=== PATIENT | male | born 1945 | race Hispanic/Latino ===

== ENCOUNTER 2016-08-06 18:42 | Inpatient (IN) | payer MEDICARE ==
[2016-08-06 22:08] VITALS: BMI 35.5
[2016-08-06] MEDS ORDERED: Albuterol-Ipratrop 3 mg / 0.5 (3 ml) UD INH STA (23:21)
[2016-08-06 23:27] VITALS: RESP 20
[2016-08-06] MEDS: Insulin Regular 100 units/ml SC SCH (23:48)
--- NOTE | 2016-08-07 00:35 | CP.PCM.HP ---
History of Present Illness - History of Present Illness History of Present Illness: CC: admitted for IV Abx for CAP and for PT/OT HPI: This is a 71 y/o male with DM2, HTN, and HLD who comes from [facility] where he was admitted on 08/02/16 for CAP. He also had c/o some b/l LE stiffness and generalized UE weakness and shakiness. Patient states currently breathing is comfortable. Denies f/c/n/v/d. ROS: 14 systems reviewed, negative other than HPI MHx: DM2, HTN, HLD SHx: None Allergies: NKDA Medications: As per med rec Family Hx: Reviewed, no relevant findings Social Hx: Lives with family, denies EtOH, denies tobacco Present on Admission - Present on Admission Any Indicators Present on Admission: No Past Patient History - Past Medical History & Family History Past Medical History?: Yes - Past Social History Smoking Status: Former Smoker - CARDIAC Hx Hypercholesterolemia: Yes Hx Hypertension: Yes - PULMONARY Hx Respiratory Disorders: No Hx Pneumonia: Yes - NEUROLOGICAL Hx Neurological Disorder: No - HEENT Hx HEENT Problems: Yes Other/Comment: WEAR GLASSES FOR VISION AND DRIVING - RENAL Hx Chronic Kidney Disease: Yes Hx Kidney Stones: Yes - ENDOCRINE/METABOLIC Hx Endocrine Disorders: Yes Hx Diabetes Mellitus Type 2: Yes - HEMATOLOGICAL/ONCOLOGICAL Hx Blood Disorders: No Hx AIDS: No Hx Blood Transfusions: No Hx Human Immunodeficiency Virus (HIV): No - INTEGUMENTARY Hx Dermatological Problems: No - MUSCULOSKELETAL/RHEUMATOLOGICAL Hx Musculoskeletal Disorders: Yes Hx Back Pain: Yes Hx Falls: Yes (fell a year ago) Other/Comment: fell a year ago - GASTROINTESTINAL Hx Gastrointestinal Disorders: No - GENITOURINARY/GYNECOLOGICAL Hx Genitourinary Disorders: No - PSYCHIATRIC Hx Psychophysiologic Disorder: No Hx Substance Use: No - SURGICAL HISTORY Hx Surgeries: No - ANESTHESIA Hx Anesthesia: No Hx Anesthesia Reactions: No Hx Malignant Hyperthermia: No Meds Allergies/Adverse Reactions: Allergies Allergy/AdvReac Type Severity Reaction Status Date / Time No Known Allergies Allergy Verified 08/02/16 09:25 Physical Exam - Constitutional Appears: No Acute Distress - Head Exam Head Exam: ATRAUMATIC, NORMOCEPHALIC - Eye Exam Eye Exam: EOMI, PERRL - ENT Exam ENT Exam: Mucous Membranes Moist - Neck Exam Neck exam: Positive for: Full Rom - Respiratory Exam Respiratory Exam: Rhonchi, NORMAL BREATHING PATTERN - Cardiovascular Exam Cardiovascular Exam: REGULAR RHYTHM, +S1, +S2 - GI/Abdominal Exam GI & Abdominal Exam: Normal Bowel Sounds, Soft - Extremities Exam Extremities exam: Positive for: full ROM, normal inspection - Neurological Exam Neurological exam: Alert, CN II-XII Intact, Oriented x3 - Psychiatric Exam Psychiatric exam: Normal Affect, Normal Mood - Skin Skin Exam: Dry, Warm Results - Vital Signs Recent Vital Signs: Last Vital Signs Temp Pulse 84 08/06/16 23:53 Resp 20 08/06/16 23:05 BP Pulse Ox Assessment & Plan (1) CAP (community acquired pneumonia) Assessment and Plan: A/P: This is a 71 y/o male with MHx significant DM2, HTN, and HLD who comes in with CAP and deconditioning. 1) CAP -Continue Ceftriaxone, Azithromycin IV -Duonebs q6h PRN 2) Weakness/deconditioning -- PT/OT consult 3) DM2 -- continue PO medications, QID ACHS accuchecks, SSI, DM diet 4) HTN -- continue regular medications 5) DVT PPx -- SC Lovenox Status: Acute (2) DM2 (diabetes mellitus, type 2) Status: Acute (3) HTN (hypertension) Status: Acute (4) HLD (hyperlipidemia) Status: Acute (5) DVT prophylaxis Status: Acute
[2016-08-07] MEDS ORDERED: Azithromycin 500 MG in Sodium Chloride 0.9% 250 ML IVPB SCH (00:45)
[2016-08-07] MEDS: Insulin Regular 100 units/ml SC SCH ×4 (06:47→21:46)
[2016-08-07 07:18] LABS: HEMATOCRIT 30.8 % (35.0-51.0); MEAN CELL VOLUME 92.2 fl (80.0-94.0); MEAN CORPUSCULAR HEMOGLOBIN 31.2 pg (27.0-31.0); MEAN CORPUSCULAR HGB CONC 33.8 g/dL (33.0-37.0); RED CELL DISTRIBUTION WIDTH 13.5 % (11.5-14.5); WHITE BLOOD COUNT 7.4 K/uL (4.8-10.8)
[2016-08-07 07:25] LABS: BLOOD UREA NITROGEN 23 mg/dl (9-20); CALCIUM 8.9 mg/dL (8.4-10.2); CARBON DIOXIDE 29 mmol/L (22-30); CHLORIDE 101 mmol/L (98-107); GFR AFRICAN-AMERICAN > 60; GLUCOSE,RANDOM 254 mg/dL (75-110); SODIUM 137 mmol/l (132-148)
[2016-08-07] MEDS: Verapamil 180 mg ER Tab PO SCH (08:30)
[2016-08-07] MEDS: Pantoprazole 40 mg EC Tab PO SCH (08:33)
[2016-08-07] MEDS ORDERED: cefTRIAXone (Rocephin) 1 gm Inj IVPB SCH (09:00)
[2016-08-07] MEDS ORDERED: LISINOPRIL 40 MG PO SCH (09:00)
[2016-08-07] MEDS ORDERED: VERAPAMIL HCL 300 MG PO SCH (09:00)
[2016-08-07] MEDS: Albuterol-Ipratrop 3 mg / 0.5 (3 ml) UD INH PRN ×2 (09:37→20:08)
[2016-08-07] MEDS: cefTRIAXone 1 gm/NS 100ML IVPB SCH (09:56)
[2016-08-07] MEDS: Verapamil 120 mg ER Tab PO SCH ×2 (12:20→14:02)
[2016-08-07] MEDS: Azithromycin 500 MG in Sodium Chloride 0.9% 250 ML IVPB SCH (21:10)
[2016-08-08] MEDS: Insulin Regular 100 units/ml SC SCH ×4 (06:42→21:09)
[2016-08-08] MEDS: Albuterol-Ipratrop 3 mg / 0.5 (3 ml) UD INH PRN (07:39)
[2016-08-08] MEDS: Pantoprazole 40 mg EC Tab PO SCH (08:34)
[2016-08-08] MEDS: Verapamil 180 mg ER Tab PO SCH (08:38)
[2016-08-08] MEDS: Verapamil 120 mg ER Tab PO SCH (08:39)
[2016-08-08] MEDS: cefTRIAXone 1 gm/NS 100ML IVPB SCH (08:40)
[2016-08-08] MEDS: Azithromycin 500 MG in Sodium Chloride 0.9% 250 ML IVPB SCH (21:09)
[2016-08-09] MEDS: Insulin Regular 100 units/ml SC SCH ×4 (06:32→21:24)
[2016-08-09] MEDS: Pantoprazole 40 mg EC Tab PO SCH (08:26)
[2016-08-09] MEDS: Verapamil 120 mg ER Tab PO SCH (08:26)
[2016-08-09] MEDS: Verapamil 180 mg ER Tab PO SCH (08:26)
[2016-08-09] MEDS: cefTRIAXone 1 gm/NS 100ML IVPB SCH (08:28)
[2016-08-09] MEDS: Azithromycin 500 MG in Sodium Chloride 0.9% 250 ML IVPB SCH (21:26)
[2016-08-10] MEDS: Insulin Regular 100 units/ml SC SCH ×4 (06:39→21:11)
[2016-08-10] MEDS: cefTRIAXone 1 gm/NS 100ML IVPB SCH (08:24)
[2016-08-10] MEDS: Pantoprazole 40 mg EC Tab PO SCH (08:26)
[2016-08-10] MEDS: Verapamil 180 mg ER Tab PO SCH (08:27)
[2016-08-10] MEDS ORDERED: Ergocalciferol 50,000 Intl Units Cap PO SCH (09:00)
--- NOTE | 2016-08-10 15:21 | CP.PCM.PN ---
Subjective - Date & Time of Evaluation Date of Evaluation: 08/10/16 Time of Evaluation: 15:00 - Subjective Subjective: No fever cough better no SOB ambulatory no CP no abd pain Objective - Vital Signs/Intake and Output Vital Signs (last 24 hours): Temp Pulse Resp BP Pulse Ox 98.1 F 60 20 139/72 95 08/10/16 08:33 08/10/16 08:33 08/10/16 08:33 08/10/16 08:33 08/10/16 08:33 - Medications Medications: Current Medications Acetaminophen (Tylenol 325mg Tab) 650 mg PO Q6 PRN PRN Reason: for fever 100.4 and over Acetaminophen (Tylenol 325mg Tab) 650 mg PO Q6 PRN PRN Reason: Pain, moderate (4-7) Albuterol/Ipratropium (Duoneb 3 Mg/0.5 Mg (3 Ml) Ud) 3 ml INH Q4 PRN PRN Reason: SOB, wheezing Last Admin: 08/08/16 07:39 Dose: 3 ml Aspirin (Ecotrin) 81 mg PO DAILY [facility] Last Admin: 08/10/16 08:26 Dose: 81 mg Atorvastatin Calcium (Lipitor) 10 mg PO DAILY [facility] Last Admin: 08/10/16 08:27 Dose: 10 mg Benzonatate (Tessalon Perles) 100 mg PO TID [facility] Last Admin: 08/10/16 12:11 Dose: 100 mg Ergocalciferol (Drisdol 50,000 Intl Units Cap) 1 cap PO TUE [facility] Last Admin: 08/10/16 08:26 Dose: 1 cap Glipizide (Glucotrol) 5 mg PO BID@0730,1630 [facility] Last Admin: 08/10/16 06:52 Dose: 5 mg Heparin Sodium (Porcine) (Heparin) 5,000 units SC Q8H [facility] PRN Reason: Protocol Last Admin: 08/10/16 08:26 Dose: 5,000 units Hydrochlorothiazide (Hydrodiuril) 25 mg PO DAILY [facility] Last Admin: 08/10/16 08:25 Dose: 25 mg Ceftriaxone Sodium 1 gm/ (Sodium Chloride) 100 mls @ 100 mls/hr IVPB DAILY [facility] Last Admin: 08/10/16 08:24 Dose: 100 mls/hr Azithromycin 500 mg/ Sodium (Chloride) 250 mls @ 125 mls/hr IVPB 2100 [facility] Last Admin: 08/09/16 21:26 Dose: 125 mls/hr Insulin Human Regular (Humulin R) 0 units SC ACHS [facility] PRN Reason: Protocol Last Admin: 08/10/16 12:09 Dose: 10 u Metoprolol Tartrate (Lopressor) 100 mg PO BID [facility] Last Admin: 08/10/16 08:25 Dose: 100 mg Pantoprazole Sodium (Protonix Ec Tab) 40 mg PO DAILY [facility] Last Admin: 08/10/16 08:26 Dose: 40 mg Prednisone (Prednisone Tab) 20 mg PO DAILY [facility] Last Admin: 08/10/16 08:26 Dose: 20 mg Verapamil HCl (Calan Sr Tab) 120 mg PO DAILY [facility] Last Admin: 08/09/16 08:26 Dose: 120 mg Verapamil HCl (Calan Sr Tab) 180 mg PO DAILY [facility] Last Admin: 08/10/16 08:27 Dose: 180 mg - Labs Labs: 08/07/16 06:00 08/07/16 06:00 - Constitutional Appears: No Acute Distress - Head Exam Head Exam: NORMAL INSPECTION, NORMOCEPHALIC - Eye Exam Eye Exam: EOMI, Normal appearance Pupil Exam: NORMAL ACCOMODATION - ENT Exam ENT Exam: Mucous Membranes Moist, Normal External Ear Exam - Neck Exam Neck Exam: Full ROM. absent: Meningismus - Respiratory Exam Respiratory Exam: Rhonchi, NORMAL BREATHING PATTERN. absent: Rales, Wheezes, Respiratory Distress - Cardiovascular Exam Cardiovascular Exam: REGULAR RHYTHM, +S1, +S2 - GI/Abdominal Exam GI & Abdominal Exam: Soft, Normal Bowel Sounds. absent: Tenderness - Extremities Exam Extremities Exam: Full ROM, Normal Capillary Refill. absent: Calf Tenderness - Back Exam Back Exam: Full ROM, NORMAL INSPECTION. absent: CVA tenderness (L), CVA tenderness (R), paraspinal tenderness - Neurological Exam Neurological Exam: Alert, Awake, CN II-XII Intact, Normal Gait, Oriented x3 Neuro motor strength exam: Left Upper Extremity: 5, Right Upper Extremity: 5, Left Lower Extremity: 5, Right Lower Extremity: 5 - Psychiatric Exam Psychiatric exam: Normal Affect, Normal Mood - Skin Skin Exam: Dry, Normal Color, Warm Assessment and Plan (1) CAP (community acquired pneumonia) Status: Acute (2) DM2 (diabetes mellitus, type 2) Status: Chronic (3) HLD (hyperlipidemia) Status: Chronic (4) HTN (hypertension) Status: Chronic (5) DVT prophylaxis Status: Acute - Assessment and Plan (Free Text) Assessment: 71 y/o male with MHx significant DM2, HTN, and HLD , admitted to [facility] for CAP, transferred to TCU for completion of IV antibiotics . Pt is doing well, cough improved, no SOB 1) CAP -Continue Ceftriaxone, Azithromycin IV -Duonebs q6h PRN -decrease Prednisone to 10 mg daily then d/c -Plan for d/c home in am 2) DM type II uncontrolled due to steroids - accucheck -cont Glucotrol -restart Metformin 3) HTN -- continue regular medications cont Metoprolol, Verapamil and HCTZ 4) DVT PPx -- SC Lovenox
[2016-08-10] MEDS: Verapamil 120 mg ER Tab PO SCH (17:00)
[2016-08-10] MEDS: Azithromycin 500 MG in Sodium Chloride 0.9% 250 ML IVPB SCH (21:05)
[2016-08-11] MEDS: Insulin Regular 100 units/ml SC SCH (06:36)
[2016-08-11 07:56] VITALS: BP 141/82; TEMP 97.7; O2SAT 93
[2016-08-11] MEDS: Pantoprazole 40 mg EC Tab PO SCH (08:19)
[2016-08-11] MEDS: Verapamil 120 mg ER Tab PO SCH (08:20)
[2016-08-11 08:22] VITALS: PULSE 62
[2016-08-11] MEDS: cefTRIAXone 1 gm/NS 100ML IVPB SCH (08:22)
[2016-08-11] MEDS: Verapamil 180 mg ER Tab PO SCH (09:03)
--- NOTE | 2016-08-11 11:58 | CP.PCM.DIS ---
Provider - Provider Date of Admission: 08/06/16 22:09 Attending physician: Bety Friedman MD Time Spent in preparation of Discharge (in minutes): 35 Diagnosis - Discharge Diagnosis (1) CAP (community acquired pneumonia) Status: Acute Comment: completed course of IV Rocephin and Zithromax. Medrol trina as directed (2) DM2 (diabetes mellitus, type 2) Status: Chronic Comment: BS uncontrolled probably secondary to steroid. continue Glipizide and Metformin (3) HLD (hyperlipidemia) Status: Chronic Comment: continue Lipitor (4) HTN (hypertension) Status: Chronic Comment: BP stable. continue Metoprolol and Verapamil Hospital Course - Lab Results Lab Results: Most Recent Lab Values WBC 7.4 K/uL (4.8-10.8) 08/07/16 06:00 RBC 3.34 Mil/uL (4.40-5.90) L 08/07/16 06:00 Hgb 10.4 g/dL (12.0-18.0) L 08/07/16 06:00 Hct 30.8 % (35.0-51.0) L 08/07/16 06:00 MCV 92.2 fl (80.0-94.0) D 08/07/16 06:00 MCH 31.2 pg (27.0-31.0) H 08/07/16 06:00 MCHC 33.8 g/dL (33.0-37.0) 08/07/16 06:00 RDW 13.5 % (11.5-14.5) 08/07/16 06:00 Plt Count 203 K/uL (130-400) 08/07/16 06:00 Sodium 137 mmol/l (132-148) 08/07/16 06:00 Potassium 4.0 MMOL/L (3.6-5.0) 08/07/16 06:00 Chloride 101 mmol/L (98-107) 08/07/16 06:00 Carbon Dioxide 29 mmol/L (22-30) 08/07/16 06:00 Anion Gap 11 (10-20) 08/07/16 06:00 BUN 23 mg/dl (9-20) H 08/07/16 06:00 Creatinine 1.0 mg/dL (0.8-1.5) 08/07/16 06:00 Est GFR ( Amer) > 60 08/07/16 06:00 Est GFR (Non-Af Amer) > 60 08/07/16 06:00 POC Glucose (mg/dL) 228 mg/dL (65-110) H 08/11/16 05:42 Random Glucose 254 mg/dL (75-110) H 08/07/16 06:00 Calcium 8.9 mg/dL (8.4-10.2) 08/07/16 06:00 - Hospital Course Hospital Course: 71 yo male with history of DM2 and HTN was admitted at [facility] 2016 because of CAP accompanied with generalized weakness and shakiness. He was started on antibiotics and did well. He was transferred to TCU for continuation of IV antibiotics as well as therapy for deconditioning. Pt is much improved and stable and ready for discharge. Discharge Exam - Head Exam Head Exam: NORMAL INSPECTION, NORMOCEPHALIC - Eye Exam Eye Exam: absent: Scleral icterus - ENT Exam ENT Exam: Mucous Membranes Moist - Respiratory Exam Respiratory Exam: absent: Wheezes, Respiratory Distress - Cardiovascular Exam Cardiovascular Exam: REGULAR RHYTHM, +S1, +S2 - GI/Abdominal Exam GI & Abdominal Exam: Soft. absent: Tenderness - Rectal Exam Rectal Exam: Deferred - Neurological Exam Neurological exam: Alert, Oriented x3 - Psychiatric Exam Psychiatric exam: Normal Affect - Skin Skin Exam: Dry, Intact Discharge Plan - Discharge Medications Prescriptions: Verapamil [Verapamil HCl] 180 mg PO DAILY #30 tab Ergocalciferol [Drisdol 50,000 Intl Units Cap] 1 cap PO TUE #8 cap GlipiZIDE [Glucotrol] 5 mg PO BID #60 tab Atorvastatin [Lipitor] 10 mg PO DAILY #30 tab Metoprolol Tartrate [Lopressor] 100 mg PO BID #60 tab Methylprednisolone [Medrol Dose Pack (21 tabs)] 4 mg PO ASDIR #21 mg Pantoprazole [Protonix] 40 mg PO DAILY #14 ect metFORMIN [glucOPHAGE] 500 mg PO BIDBS #60 tab - Follow Up Plan Condition: GOOD Disposition: HOME/ ROUTINE Instructions: Diabetic Hypoglycemia (DC), Pneumonia (DC)
== END 2016-08-11 12:15 | disposition home or self-care (01) | DRG 195 ==
LOC: H.TCU 22:09
PROVIDERS: ADMIT Internal Medicine; ATTEND Internal Medicine
PROC: F07L0ZZ Range of Motion and Joint Mobility Treatment of Musculoskeletal System - Lower Back / Lower Extremity (ICD-10-PCS; principal; 2016-08-06)
PROC: F08Z4ZZ Home Management Treatment (ICD-10-PCS; 2016-08-06)
PROC: 5A0945Z Assistance with Respiratory Ventilation, 24-96 Consecutive Hours (ICD-10-PCS; 2016-08-06)
DX: J18.9 Pneumonia, unspecified organism (principal); E11.65 Type 2 diabetes mellitus with hyperglycemia; I10 Essential (primary) hypertension; T38.0X5A Adverse effect of glucocorticoids and synthetic analogues, initial encounter; E78.5 Hyperlipidemia, unspecified; Z87.891 Personal history of nicotine dependence